=== PATIENT | male | born 1995 | race African-American/Black ===

== ENCOUNTER 2020-09-09 05:01 | Emergency (ER) | payer SELFPAY ==
[~2020-09-09] VITALS: Ht 165.1 cm; Wt 63.5 kg
[2020-09-09 05:03] VITALS: BP_SYST 132
[2020-09-09 05:23] VITALS: BP_SYST 132
== END 2020-09-09 05:49 ==
LOC: SED 05:01
DX: Z04.1 Encounter for examination and observation following transport accident (principal); V47.5XXA Car driver injured in collision with fixed or stationary object in traffic accident, initial encounter; Y93.89 Activity, other specified; Y92.89 Other specified places as the place of occurrence of the external cause; Y99.8 Other external cause status
CPT/HCPCS: 99283